=== PATIENT | male | born 1955 | race Caucasian/White ===

== ENCOUNTER 2024-03-25 23:38 | Inpatient (IN) | payer MEDICARE, OTHER ==
[~2024-03-25] VITALS: Ht 177.8 cm; Wt 81.6 kg
[2024-03-26] MEDS ORDERED: ACETAMINOPHEN ES 500 MG TABLET ONE (00:57)
[2024-03-26] MEDS ORDERED: AZITHROMYCIN 500 MG VIAL ONE (00:59)
[2024-03-26] MEDS ORDERED: CEFEPIME 1 GM VIAL ONE (00:59)
[2024-03-26] MEDS: CEFEPIME 1 GM in IV D5W 50 ML IV ONE (01:04)
[2024-03-26] MEDS: ACETAMINOPHEN ES 500 MG TABLET PO ONE (01:05)
[2024-03-26 01:14] LABS: CALCIUM, SERUM 8.8 mg/dL (8.5-10.1); CARBON DIOXIDE 27 mmol/L (21-32); CHLORIDE 98 mmol/L (98-107); CREATININE 0.9 mg/dL (0.6-1.3); POTASSIUM 4.5 mmol/L (3.5-5.1); SODIUM SERUM 131 mmol/L (136-145); UREA NITROGEN, BLOOD 25 mg/dL (7-18)
[2024-03-26] MEDS: AZITHROMYCIN 500 MG in IV D5W 250 ML IV ONE (01:14)
[2024-03-26 01:16] LABS: BASOPHILS % (AUTO) 0.2 % (0.0-2.0); EOSINOPHILS % (AUTO) 0.1 % (0.0-6.0); HEMATOCRIT 46 % (39-51); HEMOGLOBIN 15.5 g/dL (13.5-17.5); LYMPHOCYTES # (AUTO) 0.3 K/uL (0.8-4.8); LYMPHOCYTES % (AUTO) 4.2 % (20.0-44.0); MEAN CORPUSCULAR HEMOGLOBIN 30 PG (26.0-33.0); MEAN CORPUSCULAR HGB CONC 34 g/dl (31.0-36.0); MEAN CORPUSCULAR VOLUME 90 fL (80-96); MONOCYTES # (AUTO) 0.7 K/uL (0.1-1.30); MONOCYTES % (AUTO) 8.4 % (2.0-12.0); NEUTROPHILS # (AUTO) 6.9 K/uL (1.8-8.9); NEUTROPHILS % (AUTO) 87.1 % (43.0-81.0); PLATELET COUNT (AUTO) 188 K/uL (150-450); RED BLOOD CELL COUNT(AUTO) 5.11 MIL/uL (4.5-6.0)
[2024-03-26 01:24] LABS: LACTIC ACID 1.9 mmol/L (0.4-2.0)
[2024-03-26 01:42] LABS: GLUCOSE 183 mg/dL (74-106)
[2024-03-26] MEDS: OSELTAMIVIR PHOSPHATE 75 MG CAPSULE PO ONE (02:19)
[2024-03-26 04:50] VITALS: BP 143/67; TEMP 99.9; O2SAT 96
[2024-03-26] MEDS ORDERED: ALBUTEROL HALF STRENGTH 1.25 MG/3 ML VIAL.NEB NEB PRN ×2 (06:30→11:52)
[2024-03-26] MEDS ORDERED: IPRATROPIUM NEB FS 0.5 MG/2.5 ML AMPUL.NEB NEB PRN (06:30)
[2024-03-26] MEDS: ENOXAPARIN SODIUM 40 MG/0.4 ML DISP.SYRIN SQ SCH (06:36)
[2024-03-26] MEDS: ACETAMINOPHEN 325 MG TABLET PO PRN (06:40)
[2024-03-26] MEDS: IV NS 0.9% 1,000 ML IV PRN (06:50)
[2024-03-26 08:00] VITALS: BP 126/71; TEMP 99.3; O2SAT 92
[2024-03-26] MEDS: OSELTAMIVIR PHOSPHATE 75 MG CAPSULE PO SCH (09:19)
[2024-03-26] MEDS ORDERED: DEXTROSE 50%-WATER 50 ML DISP.SYRIN IV PRN (11:30)
[2024-03-26 12:00] VITALS: BP 122/74; TEMP 98.2; O2SAT 96
[2024-03-26] MEDS: GABAPENTIN 300 MG CAPSULE PO SCH (12:14)
[2024-03-26] MEDS: ISOSORBIDE MONONITRATE (30MG) 30 MG TAB.SR.24H PO SCH (12:14)
[2024-03-26] MEDS: CLOPIDOGREL BISULFATE 75 MG TABLET PO SCH (12:14)
[2024-03-26] MEDS: ASPIRIN 81 MG TAB.CHEW PO SCH (12:14)
[2024-03-26] MEDS ORDERED: OLME40TA18 PO (12:43)
[2024-03-26] MEDS ORDERED: TAMS-12 PO (12:43)
[2024-03-26] MEDS ORDERED: ASPI-1169 PO (12:43)
[2024-03-26] MEDS ORDERED: RIVA2.5T PO (12:43)
[2024-03-26] MEDS ORDERED: MELO-105 PO (12:43)
[2024-03-26] MEDS ORDERED: MIRABEGRON PO (12:43)
[2024-03-26] MEDS ORDERED: CLOP75TA15 PO (12:43)
[2024-03-26] MEDS ORDERED: CARV3.12 PO (12:43)
[2024-03-26] MEDS ORDERED: EMPA10TA PO (12:43)
[2024-03-26] MEDS ORDERED: LISI10TA29 PO (12:43)
[2024-03-26] MEDS ORDERED: EZET10TA15 PO (12:43)
[2024-03-26] MEDS ORDERED: METO25TA4 PO (12:43)
[2024-03-26] MEDS ORDERED: GEMTESA PO (12:43)
[2024-03-26] MEDS ORDERED: METR45CR TP (12:43)
[2024-03-26] MEDS ORDERED: ISOS30TA9 PO (12:43)
[2024-03-26] MEDS ORDERED: INSU100I4 SQ (12:43)
[2024-03-26] MEDS ORDERED: ATOR80TA PO (12:43)
[2024-03-26] MEDS: BLOOD SUGAR DIAGNOSTIC 1 EACH STRIP IN SCH (12:53)
[2024-03-26 16:00] VITALS: BP 115/70; TEMP 100.2; O2SAT 90
[2024-03-26] MEDS: CARVEDILOL 3.125 MG TABLET PO SCH (16:14)
[2024-03-26 20:00] VITALS: BP 99/67; TEMP 98.2; O2SAT 90
[2024-03-26] MEDS: CEFTRIAXONE 1 G in IV D5W 50 ML IV SCH (20:18)
[2024-03-26] MEDS ORDERED: AZITHROMYCIN 500 MG in IV D5W 250 ML IV SCH (21:00)
[2024-03-26] MEDS: TAMSULOSIN 0.4 MG CAP.SR.24H PO SCH (21:16)
[2024-03-26] MEDS: ATORVASTATIN 40 MG TABLET PO SCH (21:17)
[2024-03-26] MEDS: INSULIN REGULAR, HUMAN 100 UNIT/ML 3 ML VIAL SQ PRN (21:24)
[2024-03-27] VITALS: BP 140/79; TEMP 98.1; O2SAT 90
[2024-03-27 04:00] VITALS: BP 112/62; TEMP 98.2; O2SAT 90
[2024-03-27 08:00] VITALS: BP 138/72; TEMP 97.9; O2SAT 95
[2024-03-27] MEDS: ESCITALOPRAM OXALATE (10 MG) 10 MG TABLET PO SCH (08:22)
[2024-03-27] MEDS: LISINOPRIL (5MG) 5 MG TABLET PO SCH (08:24)
[2024-03-27] MEDS ORDERED: MELOXICAM 7.5 MG TABLET PO SCH (09:00)
[2024-03-27 09:54] LABS: CALCIUM, SERUM 8.6 mg/dL (8.5-10.1); CREATININE 0.8 mg/dL (0.6-1.3); PHOSPHORUS 2.3 mg/dL (2.5-4.9); POTASSIUM 3.6 mmol/L (3.5-5.1)
[2024-03-27 09:57] LABS: BASOPHILS % (AUTO) 0.3 % (0.0-2.0); HEMATOCRIT 44 % (39-51); HEMOGLOBIN 14.9 g/dL (13.5-17.5); LYMPHOCYTES # (AUTO) 0.8 K/uL (0.8-4.8); LYMPHOCYTES % (AUTO) 23.6 % (20.0-44.0); MEAN CORPUSCULAR HEMOGLOBIN 30 PG (26.0-33.0); MEAN CORPUSCULAR HGB CONC 34 g/dl (31.0-36.0); MEAN CORPUSCULAR VOLUME 88 fL (80-96); MONOCYTES # (AUTO) 0.6 K/uL (0.1-1.30); NEUTROPHILS # (AUTO) 1.9 K/uL (1.8-8.9); NEUTROPHILS % (AUTO) 58.1 % (43.0-81.0); PLATELET COUNT (AUTO) 160 K/uL (150-450); RED BLOOD CELL COUNT(AUTO) 5.04 MIL/uL (4.5-6.0); RED CELL DISTRIBUTION WIDTH 14.9 % (11.5-15.0); WHITE BLOOD COUNT (AUTO) 3.3 K/uL (4.3-11.0)
[2024-03-27 10:20] LABS: THYROID STIMULATING HORMONE 0.52 uIU/mL (0.358-3.74); URIC ACID 3.4 mg/dL (2.6-7.2)
[2024-03-27 11:15] LABS: LYMPHOCYTES % (MANUAL) 28 % (16-48); MONOCYTES % (MANUAL) 22 % (0-11.0); NEUTROPHILS % (MANUAL) 50 (42-76); PLATELET ESTIMATE ADEQUATE
[2024-03-27 11:16] LABS: ANISOCYTOSIS 1+
[2024-03-27 12:00] VITALS: BP 125/70; TEMP 97.5; O2SAT 96
[2024-03-27] MEDS: EMPAGLIFLOZIN 10 MG TABLET PO SCH (14:00)
[2024-03-27] MEDS: ONDANSETRON HCL/PF 4 MG/2 ML VIAL IVP PRN (14:00)
[2024-03-27 16:00] VITALS: BP 110/67; TEMP 97.5; O2SAT 97
[2024-03-27] MEDS: CARVEDILOL 3.125 MG TABLET PO SCH (16:05)
[2024-03-27] MEDS: K PHOS NEUTRAL 250 MG TABLET PO ONE (16:19)
[2024-03-27] MEDS: RIVAROXABAN 10 MG TABLET PO SCH (17:07)
[2024-03-27 20:00] VITALS: BP 122/70; TEMP 97.9; O2SAT 94
[2024-03-28] VITALS: BP 122/67; TEMP 98.2; O2SAT 94
[2024-03-28 04:00] VITALS: BP 154/81; TEMP 97.5; O2SAT 96
[2024-03-28 07:35] LABS: CALCIUM, SERUM 8.5 mg/dL (8.5-10.1); CREATININE 0.7 mg/dL (0.6-1.3); PHOSPHORUS 3.7 mg/dL (2.5-4.9); POTASSIUM 3.3 mmol/L (3.5-5.1)
[2024-03-28 08:00] VITALS: BP 130/75; TEMP 98.2; O2SAT 92
[2024-03-28] MEDS: EZETIMIBE 10 MG TABLET PO SCH (08:36)
[2024-03-28] MEDS: POTASSIUM CHLORIDE 20 MEQ TAB.PRT.SR PO SCH (10:22)
[2024-03-28 12:00] VITALS: BP 112/66; TEMP 98.2; O2SAT 91
[2024-03-28 16:00] VITALS: BP 122/68; TEMP 98.3; O2SAT 93
[2024-03-28 20:00] VITALS: BP 135/65; TEMP 97.9; O2SAT 95
[2024-03-29] VITALS: BP 132/68; TEMP 98; O2SAT 94
[2024-03-29 04:00] VITALS: BP 137/64; TEMP 98.2; O2SAT 95
[2024-03-29 08:00] VITALS: BP 140/78; TEMP 98.3; O2SAT 93
[2024-03-29 08:19] LABS: CALCIUM, SERUM 8.6 mg/dL (8.5-10.1); CREATININE 0.6 mg/dL (0.6-1.3); POTASSIUM 3.4 mmol/L (3.5-5.1)
[2024-03-29] MEDS: POTASSIUM CHLORIDE 20 MEQ TAB.PRT.SR PO SCH (10:56)
[2024-03-29 12:46] VITALS: BP 126/64; TEMP 98.2; O2SAT 95
[2024-03-29 16:29] VITALS: BP 132/68; TEMP 98; O2SAT 94
[2024-03-29 20:00] VITALS: BP 146/73; TEMP 97.7; O2SAT 96
[2024-03-30 04:00] VITALS: BP 148/72; TEMP 97.7; O2SAT 96
[2024-03-30 08:00] VITALS: BP 159/77; TEMP 98.1; O2SAT 95
[2024-03-30 08:57] LABS: CALCIUM, SERUM 8.9 mg/dL (8.5-10.1); CREATININE 0.7 mg/dL (0.6-1.3); POTASSIUM 3.8 mmol/L (3.5-5.1)
[2024-03-30 16:00] VITALS: BP 155/89; TEMP 97.9; O2SAT 97
[2024-03-30 16:03] VITALS: BP 155/89
== END 2024-03-30 17:04 | disposition home or self-care (01) | DRG 193 ==
LOC: ER 23:49 → MEDSG1 03-26 03:08 → TELE1 03-26 04:39 → MEDSG1 03-29 09:41
PROVIDERS: ADMIT Nurse Practitioner Acute Care; ATTEND Nurse Practitioner Acute Care
DX: J10.08 Influenza due to other identified influenza virus with other specified pneumonia (principal); J96.01 Acute respiratory failure with hypoxia; I50.20 Unspecified systolic (congestive) heart failure; E87.1 Hypo-osmolality and hyponatremia; J12.9 Viral pneumonia, unspecified; J15.9 Unspecified bacterial pneumonia; I11.0 Hypertensive heart disease with heart failure; E11.40 Type 2 diabetes mellitus with diabetic neuropathy, unspecified; E78.5 Hyperlipidemia, unspecified; E86.0 Dehydration; E86.1 Hypovolemia; E87.6 Hypokalemia; F32.A Depression, unspecified; I25.10 Atherosclerotic heart disease of native coronary artery without angina pectoris; N40.0 Benign prostatic hyperplasia without lower urinary tract symptoms; Z79.82 Long term (current) use of aspirin; Z79.899 Other long term (current) drug therapy; Z86.73 Personal history of transient ischemic attack (TIA), and cerebral infarction without residual deficits; Z87.891 Personal history of nicotine dependence; Z95.1 Presence of aortocoronary bypass graft; Z95.5 Presence of coronary angioplasty implant and graft
CPT/HCPCS: 36415; 71045-TC; 80048-TC; 82962-TC; 83605-TC; 83735-TC; 83880; 84100-TC; 84443-TC; 84484-TC; 84550-TC; 85025-TC; 85378-TC; 87040-TC; 93307-TC; 93970-TC; A4223; G0378; J0456; J0692; J0696; J1650; J1815; J2405; J7030; J7060

== ENCOUNTER 2024-04-22 22:00 | Inpatient (IN) | payer MEDICARE, OTHER ==
[~2024-04-22] VITALS: Ht 177.8 cm; Wt 94.3 kg
[~2024-04-22 22:00] MED LIST: ASPI-1169 PO; ATOR80TA PO; CARV3.12 PO; CLOP75TA15 PO; EMPA10TA PO; EZET10TA15 PO; GEMTESA PO; INSU100I4 SQ; ISOS30TA9 PO; LISI10TA29 PO; MELO-105 PO; METO25TA4 PO; METR45CR TP; MIRABEGRON PO; OLME40TA18 PO; RIVA2.5T PO; TAMS-12 PO
[2024-04-22 22:28] LABS: BASOPHILS % (AUTO) 0.5 % (0.0-2.0); EOSINOPHILS # (AUTO) 0.2 K/uL (0.0-0.7); HEMATOCRIT 45 % (39-51); HEMOGLOBIN 15.2 g/dL (13.5-17.5); LYMPHOCYTES # (AUTO) 1.7 K/uL (0.8-4.8); LYMPHOCYTES % (AUTO) 22.4 % (20.0-44.0); MEAN CORPUSCULAR HEMOGLOBIN 30 PG (26.0-33.0); MEAN CORPUSCULAR HGB CONC 34 g/dl (31.0-36.0); MEAN CORPUSCULAR VOLUME 88 fL (80-96); MONOCYTES # (AUTO) 0.9 K/uL (0.1-1.30); MONOCYTES % (AUTO) 11.1 % (2.0-12.0); NEUTROPHILS # (AUTO) 4.9 K/uL (1.8-8.9); PLATELET COUNT (AUTO) 214 K/uL (150-450); RED BLOOD CELL COUNT(AUTO) 5.12 MIL/uL (4.5-6.0); RED CELL DISTRIBUTION WIDTH 14.9 % (11.5-15.0); WHITE BLOOD COUNT (AUTO) 7.7 K/uL (4.3-11.0)
[2024-04-22 22:37] LABS: CALCIUM, SERUM 8.7 mg/dL (8.5-10.1); CARBON DIOXIDE 31 mmol/L (21-32); CHLORIDE 103 mmol/L (98-107); CREATININE 0.8 mg/dL (0.6-1.3); GLUCOSE 136 mg/dL (74-106); POTASSIUM 3.9 mmol/L (3.5-5.1); SODIUM SERUM 137 mmol/L (136-145); UREA NITROGEN, BLOOD 12 mg/dL (7-18)
[2024-04-22 22:49] LABS: ALANINE AMINOTRANSFERASE 51 U/L (12-78); ALBUMIN 3.4 g/dL (3.4-5.0); ALKALINE PHOSPHATASE 114 U/L (46-116); ASPARTATE AMINOTRANSFERASE 20 U/L (15-37); BILIRUBIN,DIRECT 0.2 mg/dL (0.0-0.2); BILIRUBIN,TOTAL 0.5 mg/dL (0.2-1.0); NT-PRO BNP 233 pg/mL (0-125); TOTAL PROTEIN, SERUM 7.4 g/dL (6.4-8.2)
[2024-04-22] MEDS ORDERED: MORPHINE SULFATE INJ 2 MG/ML DISP.SYRIN ONE (23:18)
[2024-04-22] MEDS ORDERED: ASPIRIN 325 MG TABLET ONE (23:19)
[2024-04-22] MEDS ORDERED: NITROGLYCERIN 0.4 MG/TAB BOTTLE ONE (23:19)
[2024-04-22] MEDS: ASPIRIN 325 MG TABLET PO ONE (23:25)
[2024-04-22] MEDS: MORPHINE SULFATE INJ 2 MG/ML DISP.SYRIN IV ONE (23:25)
[2024-04-22] MEDS: NITROGLYCERIN 0.4 MG/TAB BOTTLE SL ONE (23:25)
[2024-04-22] MEDS ORDERED: ACETAMINOPHEN 325 MG TABLET PO PRN (23:30)
[2024-04-22] MEDS ORDERED: DEXTROSE 50%-WATER 50 ML DISP.SYRIN IV PRN (23:30)
[2024-04-22] MEDS ORDERED: INSULIN REGULAR, HUMAN 100 UNIT/ML 3 ML VIAL SQ PRN (23:30)
[2024-04-22] MEDS ORDERED: MAG HYDROX/AL HYDROX/SIMETH 30 ML UDC PO PRN (23:30)
[2024-04-22] MEDS ORDERED: ONDANSETRON HCL/PF 4 MG/2 ML VIAL IVP PRN (23:30)
[2024-04-22] MEDS ORDERED: MAGNESIUM HYDROXIDE 30 ML UDC PO PRN (23:30)
[2024-04-23 00:55] VITALS: BP 153/75; TEMP 97.5; O2SAT 95
[2024-04-23 01:00] VITALS: BP 153/75; TEMP 97.5; O2SAT 95
[2024-04-23 04:00] VITALS: BP 159/71; TEMP 97.7; O2SAT 92
[2024-04-23] MEDS: BLOOD SUGAR DIAGNOSTIC 1 EACH STRIP IN SCH (05:47)
[2024-04-23 07:22] LABS: BASOPHILS % (AUTO) 0.4 % (0.0-2.0); EOSINOPHILS # (AUTO) 0.2 K/uL (0.0-0.7); EOSINOPHILS % (AUTO) 3.1 % (0.0-6.0); HEMATOCRIT 43 % (39-51); HEMOGLOBIN 14.5 g/dL (13.5-17.5); LYMPHOCYTES # (AUTO) 1.6 K/uL (0.8-4.8); LYMPHOCYTES % (AUTO) 23.1 % (20.0-44.0); MEAN CORPUSCULAR HEMOGLOBIN 30 PG (26.0-33.0); MEAN CORPUSCULAR HGB CONC 34 g/dl (31.0-36.0); MEAN CORPUSCULAR VOLUME 88 fL (80-96); MONOCYTES # (AUTO) 0.7 K/uL (0.1-1.30); MONOCYTES % (AUTO) 9.9 % (2.0-12.0); NEUTROPHILS # (AUTO) 4.3 K/uL (1.8-8.9); NEUTROPHILS % (AUTO) 63.5 % (43.0-81.0); PLATELET COUNT (AUTO) 213 K/uL (150-450); RED BLOOD CELL COUNT(AUTO) 4.83 MIL/uL (4.5-6.0); RED CELL DISTRIBUTION WIDTH 14.7 % (11.5-15.0); WHITE BLOOD COUNT (AUTO) 6.9 K/uL (4.3-11.0)
[2024-04-23 07:23] LABS: CREATININE 0.6 mg/dL (0.6-1.3); MAGNESIUM 2.2 mg/dL (1.8-2.4); PHOSPHORUS 3.2 mg/dL (2.5-4.9)
[2024-04-23 07:31] LABS: CALCIUM, SERUM 8.9 mg/dL (8.5-10.1)
[2024-04-23 08:00] VITALS: BP 146/70; TEMP 97.7; O2SAT 93
[2024-04-23] MEDS: MORPHINE SULFATE INJ 2 MG/ML DISP.SYRIN IV PRN (08:25)
[2024-04-23] MEDS: PANTOPRAZOLE 40 MG VIAL IV SCH (08:29)
[2024-04-23] MEDS: ASPIRIN 81 MG TAB.CHEW PO SCH (08:29)
[2024-04-23] MEDS: METOPROLOL SUCCINATE 25 MG TAB.SR.24H PO SCH (09:30)
[2024-04-23] MEDS: CLOPIDOGREL BISULFATE 75 MG TABLET PO SCH (10:48)
[2024-04-23] MEDS: TAMSULOSIN 0.4 MG CAP.SR.24H PO SCH (10:48)
[2024-04-23 12:00] VITALS: BP 159/77; TEMP 96.4; O2SAT 93
[2024-04-23] MEDS: EMPAGLIFLOZIN 10 MG TABLET PO SCH (12:12)
[2024-04-23] MEDS: RIVAROXABAN 10 MG TABLET PO SCH (12:13)
[2024-04-23] MEDS ORDERED: ATORVASTATIN 40 MG TABLET PO SCH (22:00)
[2024-04-24] MEDS ORDERED: LOSARTAN POTASSIUM 50 MG TABLET PO SCH (09:00)
[2024-04-24] MEDS ORDERED: ISOSORBIDE DINITRATE (10MG) 10 MG TABLET PO SCH (09:00)
[2024-04-24] MEDS ORDERED: ASPIRIN 81 MG TAB.CHEW PO SCH (09:00)
== END 2024-04-23 15:20 | disposition home or self-care (01) | DRG 313 ==
LOC: ER 22:03 → TELE 04-23 00:33
PROVIDERS: ADMIT Student in an Organized Health Care Education/Training Program; ATTEND Student in an Organized Health Care Education/Training Program
DX: R07.89 Other chest pain (principal); I50.20 Unspecified systolic (congestive) heart failure; I11.0 Hypertensive heart disease with heart failure; F32.A Depression, unspecified; Z79.4 Long term (current) use of insulin; Z79.84 Long term (current) use of oral hypoglycemic drugs; E78.5 Hyperlipidemia, unspecified; Z86.73 Personal history of transient ischemic attack (TIA), and cerebral infarction without residual deficits; Z95.1 Presence of aortocoronary bypass graft; Z79.01 Long term (current) use of anticoagulants; Z95.5 Presence of coronary angioplasty implant and graft; I25.10 Atherosclerotic heart disease of native coronary artery without angina pectoris; E11.9 Type 2 diabetes mellitus without complications; Z79.82 Long term (current) use of aspirin; F17.210 Nicotine dependence, cigarettes, uncomplicated; Z71.6 Tobacco abuse counseling
CPT/HCPCS: 36415; 71045-TC; 80048-TC; 80061-TC; 80076-TC; 82962-TC; 83735-TC; 83880; 84100-TC; 84484-TC; 85025-TC; G0378; J1815; J2270; J2470